=== PATIENT | female | born 1990 | race Caucasian/White ===

== ENCOUNTER 2018-12-25 09:51 | Emergency (ER) | payer BC | END 2018-12-25 12:08 | disposition home or self-care (01) | LOC: JERFT 09:51 ==

== ENCOUNTER 2019-04-16 18:08 | Emergency (ER) | payer BC ==
[2019-04-16 18:18] VITALS: BP 100/57; PULSE 88; TEMP 98.3; BMI 28.4
--- NOTE | 2019-04-16 18:52 | PDOC ---
History of Present Illness - General Chief Complaint: Urinary Problem Stated Complaint: UTI SYX Time Seen by Provider: 04/16/19 18:38 History Source: Patient Exam Limitations: No Limitations - History of Present Illness Travel History: No Abdominal Pain Onset Location: reports: suprapubic (pressure) Past History - Travel Traveled outside of the country in the last 30 days: No Close contact w/someone who was outside of country & ill: No - Past Medical History Allergies/Adverse Reactions: Allergies Allergy/AdvReac Type Severity Reaction Status Date / Time No Known Allergies Allergy Verified 04/16/19 18:13 Home Medications: Ambulatory Orders Cephalexin Monohydrate [Keflex -] 500 mg PO BID #14 capsule 12/25/18 Cephalexin Monohydrate [Keflex -] 500 mg PO BID #28 capsule 12/25/18 Ibuprofen 600 mg PO Q6H #30 tablet 12/25/18 Ibuprofen 600 mg PO Q6H #30 tablet 12/25/18 Nitrofurantoin Monohyd/M-Cryst [Macrobid -] 100 mg PO BID 5 Days #10 capsule COPD: No - Immunization History Td Vaccination: No Immunization Up to Date: No - Psycho Social/Smoking Cessation Hx Smoking Status: No Smoking History: Never smoked Have you smoked in the past 12 months: No Number of Cigarettes Smoked Daily: 0 Hx Alcohol Use: No Drug/Substance Use Hx: No Substance Use Type: None Review of Systems - Review of Systems Constitutional: No: Chills, Fever ABD/GI: No: Diarrhea, Nausea, Vomiting : Yes: Frequency, Urgency. No: Burning, Dysuria, Discharge, Flank Pain, Pain Musculoskeletal: No: Back Pain *Physical Exam - Vital Signs Last Vital Signs Temp Pulse Resp BP Pulse Ox 98.3 F 88 15 100/57 L 96 04/16/19 18:14 04/16/19 18:14 04/16/19 18:14 04/16/19 18:14 04/16/19 18:14 - Physical Exam General Appearance: Yes: Nourished Respiratory/Chest: positive: Lungs Clear, Normal Breath Sounds Cardiovascular: positive: Regular Rhythm, Regular Rate, S1, S2 Gastrointestinal/Abdominal: positive: Normal Bowel Sounds, Soft Musculoskeletal: positive: Normal Inspection. negative: CVA Tenderness Extremity: positive: Normal Capillary Refill, Normal Inspection, Normal Range of Motion Neurologic: positive: currency examiner II-XII NML intact, Fully Oriented, Alert, Normal Mood/ Affect, Normal Response, Motor Strength 5/5 Medical Decision Making - Medical Decision Making 04/16/19 18:50 28 years old female with intermittent urinary urgency and frequency for several weeks now. Patient also complained of suprapubic tenderness that started this week. She denies any fever, chills, vaginal discharge no STI concerns + mild suprapubic tenderness on exam UA/UCX r/o UTI 04/16/19 19:31 UA neg pt insisting on empiric abx treatment given her last UTI issue Discharge - Discharge Information Problems reviewed: Yes Clinical Impression/Diagnosis: Urinary frequency Condition: Stable Disposition: HOME - Additional Discharge Information Plan of Treatment: Your urinalysis was negative today. A culture was sent out for further analysis Antibiotics was sent to your pharmacy to empirically treat you given your symptoms. Please increase your hydration Follow-up with your [facility] doctor if symptoms does not resolve Return to the emergency room if worsening symptoms occurs Prescriptions: Nitrofurantoin Monohyd/M-Cryst [Macrobid -] 100 mg PO BID 5 Days #10 capsule - Follow up/Referral - Patient Discharge Instructions - Post Discharge Activity
[2019-04-16 19:34] LABS: PH,URINE 8.5 (5.0-8.0); URINE APPEARANCE CLEAR; URINE BILIRUBIN NEGATIVE (NEGATIVE); URINE COLOR YELLOW; URINE GLUCOSE (UA) NEGATIVE (NEGATIVE); URINE KETONE NEGATIVE (NEGATIVE); URINE LEUK ESTERASE NEGATIVE (NEGATIVE); URINE NITRITE NEGATIVE (NEGATIVE); URINE PROTEIN NEGATIVE (NEGATIVE); URINE UROBILINOGEN 0.2 mg/dL (0.2-1.0)
== END 2019-04-16 19:40 | disposition home or self-care (01) ==
LOC: JERFT 18:08 → JER 18:08 → JERFT 19:40
DX: R35.0 Frequency of micturition (principal)
CPT/HCPCS: 36415; 81003; 84703; 87086; 87491; 87591; 99281-25

== ENCOUNTER 2021-05-26 19:37 | Emergency (ER) | payer OTHER ==
[2021-05-26 20:37] VITALS: BP 104/67; PULSE 100; TEMP 98.4; BMI 32.5
[2021-05-29 03:11] LABS: SARS-CoV-2 NAA Not Detected (Not Detected)
== END 2021-05-26 21:39 | disposition home or self-care (01) ==
LOC: JERFT 19:37
DX: R05.1 Acute cough (principal); R51.9 Headache, unspecified; J06.9 Acute upper respiratory infection, unspecified
CPT/HCPCS: 87804; 99283-25; C9803; U0003; U0005

== ENCOUNTER 2021-06-10 09:32 | Emergency (ER) | payer OTHER ==
[2021-06-10 09:49] VITALS: BP 104/70; PULSE 80; TEMP 97.7; BMI 32.5
[2021-06-10] MEDS ORDERED: IBUPROFEN 600 MG TABLET (FP) PO ONE ×3 (10:57→11:13)
== END 2021-06-10 11:54 | disposition home or self-care (01) ==
LOC: JERFT 09:32
DX: S92.512A Displaced fracture of proximal phalanx of left lesser toe(s), initial encounter for closed fracture (principal); W22.8XXA Striking against or struck by other objects, initial encounter
CPT/HCPCS: 73660-TC-LT-FY; 99281-25

== ENCOUNTER 2022-05-24 23:01 | Emergency (ER) | payer OTHER ==
[2022-05-24 23:20] VITALS: RESP 18; TEMP 98.3; BMI 32.2
[2022-05-25 01:03] LABS: PH,URINE 6.5 (5.0-8.0); URINE APPEARANCE CLEAR; URINE BILIRUBIN NEGATIVE (NEGATIVE); URINE COLOR YELLOW; URINE GLUCOSE (UA) NEGATIVE (NEGATIVE); URINE KETONE NEGATIVE (NEGATIVE); URINE LEUK ESTERASE NEGATIVE (NEGATIVE); URINE NITRITE NEGATIVE (NEGATIVE); URINE PROTEIN NEGATIVE (NEGATIVE)
[2022-05-25 01:37] LABS: HCG,QUALITATIVE URINE Negative
[2022-05-25] MEDS ORDERED: ONDANSETRON *ODT* 4 MG TABLET SL ONE (02:33)
[2022-05-25] MEDS ORDERED: ONDANSETRON 4 MG/2 ML VIAL IVPUSH ONE (02:33)
[2022-05-25] MEDS ORDERED: SODIUM CHLORIDE 0.9% 500 ML INFUS.BAG IV ONE (02:36)
[2022-05-25] MEDS ORDERED: ONDANSETRON 4 MG/2 ML VIAL ONE (02:44)
[2022-05-25 07:39] LABS: BASO % 0.2 % (0-2.0); EOS % 0.1 % (0-4.5); HEMATOCRIT 40.2 % (32.4-45.2); HEMOGLOBIN 13.1 GM/dL (10.7-15.3); LYMPH % 9.7 % (8-40); MCH 29.5 pg (25.7-33.7); MCHC 32.6 g/dl (32.0-36.0); MEAN CELL VOLUME 90.6 fl (80-96); MEAN PLT VOLUME 9.7 fl (7.5-11.1); MONO % 5.7 % (3.8-10.2); NEUT % 84.3 % (42.8-82.8); PLATELET COUNT 161 10^3/uL (134-434); RBC 4.44 M/mm3 (3.60-5.2); RDW 13.4 % (11.6-15.6); WHITE BLOOD COUNT 6.5 K/mm3 (4.0-10.0)
[2022-05-25 07:56] LABS: CALCIUM 7.9 mg/dL (8.5-10.1)
[2022-05-25 07:57] LABS: ALBUMIN 3.1 g/dl (3.4-5.0); BLOOD UREA NITROGEN 8.6 mg/dL (7-18)
[2022-05-25 08:00] LABS: CREATININE 0.6 mg/dL (0.55-1.3)
[2022-05-25 08:02] LABS: BILIRUBIN,TOTAL 0.6 mg/dL (0.2-1); TOT PROT 6.7 g/dl (6.4-8.2)
[2022-05-25] MEDS ORDERED: SODIUM CHLORIDE 0.9% 1000 ML INFUS.BAG IV ONE (09:01)
[2022-05-25] MEDS ORDERED: METOCLOPRAMIDE HCL INJECTION 10 MG/2 ML VIAL IVPB ONE (09:01)
[2022-05-25] MEDS ORDERED: METOCLOPRAMIDE HCL INJECTION 10 MG/2 ML VIAL ONE (09:07)
[2022-05-25 10:14] VITALS: BP 101/64; PULSE 104
== END 2022-05-25 10:27 | disposition home or self-care (01) ==
LOC: JER 23:01
PROC: 3E033GC Introduction of Other Therapeutic Substance into Peripheral Vein, Percutaneous Approach (ICD-10-PCS; principal; 2022-05-24)
PROC: 3E033GC Introduction of Other Therapeutic Substance into Peripheral Vein, Percutaneous Approach (ICD-10-PCS; 2022-05-24)
PROC: 3E033GC Introduction of Other Therapeutic Substance into Peripheral Vein, Percutaneous Approach (ICD-10-PCS; 2022-05-24)
DX: N83.201 Unspecified ovarian cyst, right side (principal); K52.9 Noninfective gastroenteritis and colitis, unspecified
CPT/HCPCS: 0241U-QW; 36415; 76830-TC; 80053; 81003; 84703; 85025; 99284-25

== ENCOUNTER 2023-07-08 17:02 | Emergency (ER) | payer OTHER ==
[2023-07-08 17:12] VITALS: BP 110/71; PULSE 92; RESP 18; TEMP 98.2; BMI 37.2
[2023-07-08] MEDS ORDERED: ACETAMINOPHEN INJECTION 100 ML IVPB ONE (21:31)
[2023-07-08 21:59] LABS: BASO % 0.2 % (0-2.0); EOS % 0.9 % (0-4.5); HEMATOCRIT 31.3 % (32.4-45.2); HEMOGLOBIN 10.6 GM/dL (10.7-15.3); LYMPH % 26.4 % (8-40); MCH 30.2 pg (25.7-33.7); MCHC 33.9 g/dl (32.0-36.0); MEAN PLT VOLUME 8.4 fl (7.5-11.1); MONO % 7.1 % (3.8-10.2); NEUT % 65.4 % (42.8-82.8); PLATELET COUNT 310 10^3/uL (134-434); RBC 3.52 M/mm3 (3.60-5.2); RDW 14.4 % (11.6-15.6); WHITE BLOOD COUNT 8.9 K/mm3 (4.0-10.0)
[2023-07-08] MEDS: ACETAMINOPHEN 1000 MG/100 ML BAG IVPB ONE (22:00)
[2023-07-08 22:05] LABS: EPI CELLS 29 /uL (0-25.1); HYALINE CASTS 1 /uL (0-3.1); PH,URINE 6.5 (5.0-8.0); URINE APPEARANCE CLEAR; URINE BACTERIA 469 /uL (0-1359); URINE BILIRUBIN NEGATIVE (NEGATIVE); URINE COLOR YELLOW; URINE GLUCOSE (UA) NEGATIVE (NEGATIVE); URINE KETONE NEGATIVE (NEGATIVE); URINE LEUK ESTERASE 1+ (NEGATIVE); URINE NITRITE NEGATIVE (NEGATIVE); URINE PROTEIN NEGATIVE (NEGATIVE); URINE UROBILINOGEN 0.2 mg/dL (0.2-1.0); URINE WBC 80 /uL (0-25.8)
[2023-07-08 22:11] LABS: URINE RBC 18.9 /uL (0-23.9)
[2023-07-08 22:11] LABS: INR 1.03 (0.83-1.09)
[2023-07-08 22:14] LABS: ACTIVATED PTT 30.5 SECONDS (25.2-36.5)
[2023-07-08 22:24] LABS: CALCIUM 8.9 mg/dL (8.5-10.1)
[2023-07-08 22:25] LABS: ALBUMIN 2.9 g/dl (3.4-5.0); BLOOD UREA NITROGEN 14.3 mg/dL (7-18)
[2023-07-08 22:28] LABS: CREATININE 0.5 mg/dL (0.55-1.3)
[2023-07-08 22:30] LABS: BILIRUBIN,TOTAL 0.3 mg/dL (0.2-1); TOT PROT 6.8 g/dl (6.4-8.2)
[2023-07-09] MEDS: CEFTRIAXONE 1 GM in DEXTROSE 5%-WATER - 100 ML IVPB ONE (00:55)
[2023-07-09] MEDS ORDERED: CEFTRIAXONE 1 GM/50 ML BAG ONE (01:06)
== END 2023-07-09 01:29 | disposition home or self-care (01) ==
LOC: JER 17:02
PROC: 3E03329 Introduction of Other Anti-infective into Peripheral Vein, Percutaneous Approach (ICD-10-PCS; principal; 2023-07-09)
PROC: 3E033NZ Introduction of Analgesics, Hypnotics, Sedatives into Peripheral Vein, Percutaneous Approach (ICD-10-PCS; 2023-07-09)
DX: N39.0 Urinary tract infection, site not specified (principal); R10.30 Lower abdominal pain, unspecified; R30.0 Dysuria; M79.10 Myalgia, unspecified site; R68.83 Chills (without fever); R19.7 Diarrhea, unspecified; R51.9 Headache, unspecified; R30.9 Painful micturition, unspecified; R00.0 Tachycardia, unspecified; Z20.822 Contact with and (suspected) exposure to COVID-19
CPT/HCPCS: 0241U-QW; 36415; 74177-TC; 80053; 81003; 84703; 85025; 85610; 85651; 85730; 86140; 86850; 86900; 86901; 87086; 99285-25; J0131; Q9967